=== PATIENT | male | born 1970 | race Caucasian/White ===

== ENCOUNTER 2018-07-10 13:54 | Inpatient (IN) | payer MEDICAID, OTHER ==
[~2018-07-10] VITALS: Ht 180.3 cm; Wt 100.2 kg
[2018-07-10 15:58] LABS: BASOPHILS % (AUTO) 0.9 % (0.0-2.0); EOSINOPHILS % (AUTO) 6.9 % (1.0-6.0); HEMATOCRIT 43.5 % (41-53); HEMOGLOBIN 14.6 g/dL (13.5-17.5); LYMPHOCYTES # (AUTO) 3.8 K/uL (1.0-4.8); LYMPHOCYTES % (AUTO) 41.4 % (22.0-44.0); MEAN CORPUSCULAR HEMOGLOBIN 30.4 pg (26.0-34.0); MEAN CORPUSCULAR HGB CONC 33.5 G/dL (31.0-37.0); MEAN CORPUSCULAR VOLUME 91 fL (80-100); MONOCYTES # (AUTO) 0.9 K/uL (0.1-1.0); MONOCYTES % (AUTO) 9.8 % (2.0-9.0); NEUTROPHILS # (AUTO) 3.8 K/uL (1.8-7.7); PLATELET COUNT (AUTO) 227 K/uL (150-450); RED CELL DISTRIBUTION WIDTH 13.8 % (11.5-14.5)
[2018-07-10 16:17] LABS: ANION GAP 9 mmol/L (8-16); CALCIUM, TOTAL 9.5 mg/dL (8.8-10.5); CARBON DIOXIDE 27 mmol/L (22-29); CHLORIDE 105 mmol/L (98-107); CREATININE 1.43 mg/dL (0.60-1.30); GLOMERULAR FILTR. RATE CALC 52 mL/min (>60); GLUCOSE,RANDOM 55 mg/dL (70-110); POTASSIUM 4.5 mmol/L (3.5-5.1); SODIUM SERUM 141 mmol/L (136-145); UREA NITROGEN, BLOOD 29 mg/dL (7-18)
[2018-07-10 16:20] LABS: ALANINE AMINOTRANSFERASE 75 U/L (12-78); ALBUMIN 4.2 g/dL (3.4-5.0); ALKALINE PHOSPHATASE 107 U/L (46-116); ASPARTATE AMINOTRANSFERASE 59 U/L (15-37); BILIRUBIN,TOTAL 0.5 mg/dL (0.1-1.0); TOTAL PROTEIN, SERUM 8.1 g/dL (6.4-8.2)
[2018-07-10] MEDS ORDERED: FAMO20 PO (18:36)
[2018-07-10] MEDS ORDERED: SUMA25TA9 PO (18:36)
[2018-07-10] MEDS ORDERED: ARIP10TA8 PO (18:36)
[2018-07-10] MEDS ORDERED: TRAZ-219 PO (18:36)
[2018-07-10] MEDS ORDERED: PREG50 PO (18:36)
[2018-07-10] MEDS ORDERED: MIRT15 PO (18:36)
[2018-07-10] MEDS ORDERED: PROP20TA18 PO (18:36)
[2018-07-10] MEDS ORDERED: TRAZ-220 PO (18:36)
[2018-07-10] MEDS ORDERED: ASPI-1182 PO (18:36)
[2018-07-10] MEDS ORDERED: METF500T6 PO (18:36)
[2018-07-10] MEDS ORDERED: GEMF600T5 PO (18:36)
[2018-07-10] MEDS ORDERED: MAXIOS OP (18:36)
[2018-07-10] MEDS ORDERED: BUPR1FIL SL (18:36)
[2018-07-10] MEDS ORDERED: GABA-533 PO (18:36)
[2018-07-10] MEDS ORDERED: PIOG15TA6 PO (18:36)
[2018-07-10] MEDS ORDERED: ATOR40TA28 PO (18:36)
[2018-07-10 19:30] LABS: AMPHET/METH SCREEN,URINE NEGATIVE (NEGATIVE); BARBITURATE SCREEN, URINE NEGATIVE (NEGATIVE); BENZODIAZEPINES SCREEN,URINE NEGATIVE (NEGATIVE); CANNABINOID SCREEN,URINE NEGATIVE (NEGATIVE); COCAINE SCREEN,URINE NEGATIVE (NEGATIVE); METHADONE SCREEN, URINE NEGATIVE (NEGATIVE); OPIATE SCREEN,URINE NEGATIVE (NEGATIVE)
[2018-07-10 19:32] LABS: PHENCYCLIDINE SCREEN,URINE NEGATIVE (NEGATIVE)
[2018-07-10] MEDS ORDERED: LORazepam 2 MG TABLET PO ONE (19:45)
[2018-07-10] MEDS ORDERED: DiphenhydrAMINE HCL 25 MG CAPSULE PO ONE (19:45)
[2018-07-10 19:53] LABS: GLUCOSE,POINT OF CARE 121 MG/DL (70-110)
[2018-07-10] MEDS ORDERED: ZOLPIDEM TARTRATE 10 MG TABLET PO PRN (20:00)
[2018-07-10] MEDS ORDERED: HALOPERIDOL 5 MG TABLET PO PRN (20:00)
[2018-07-10] MEDS ORDERED: LORazepam 2 MG TABLET PO PRN (20:00)
[2018-07-10] MEDS: TraZODone HCL 50 MG TABLET PO SCH (20:33)
[2018-07-10 22:05] VITALS: BP 149/95
[2018-07-10 22:23] LABS: GLUCOMETER DEV NAME(LOC) BV2S 2; GLUCOSE,POINT OF CARE 153 MG/DL (70-110)
[2018-07-10] MEDS ORDERED: PNEUMOCOCCAL VACCINE POLYVALENT 0.5 ML VIAL [PPSV23] IM ONE (22:30)
[2018-07-10] MEDS ORDERED: ONDANSETRON HCL 4 MG TABLET PO PRN (23:15)
[2018-07-10] MEDS ORDERED: NICOTINE 14 MG/24 HOUR PATCH TD PRN (23:15)
[2018-07-10] MEDS ORDERED: MAG HYDROX/AL HYDROX/SIMETH ES 30 ML SUSPENSION UDCUP PO PRN (23:15)
[2018-07-10] MEDS ORDERED: ACETAMINOPHEN 325 MG TABLET PO PRN (23:15)
[2018-07-10] MEDS ORDERED: IBUPROFEN 400 MG TABLET PO PRN (23:15)
[2018-07-10] MEDS ORDERED: CloNIDine HCL 0.1 MG TABLET PO PRN (23:15)
[2018-07-10] MEDS ORDERED: MAGNESIUM HYDROXIDE SUSPENSION 30 ML UDCUP PO PRN (23:15)
[2018-07-10] MEDS ORDERED: ALBUTEROL SULFATE HFA 90 MCG/PUFF 8 GM INHALER IH PRN (23:15)
[2018-07-10] MEDS ORDERED: GuaiFENesin/D-METHORPHAN [SUGAR-FREE] 200-20MG/10 ML SYRUP UDCUP PO PRN (23:15)
[2018-07-10] MEDS ORDERED: DOCUSATE SODIUM 100 MG CAPSULE PO PRN (23:15)
[2018-07-10] MEDS ORDERED: PETROLATUM,WHITE 71 GM JELLY TP PRN (23:15)
[2018-07-10] MEDS ORDERED: LOPERAMIDE HCL 2 MG CAPSULE PO PRN (23:15)
[2018-07-11] MEDS ORDERED: SUMAtriptan SUCCINATE 25 MG TABLET PO PRN ×2 (00:45→01:15)
[2018-07-11] MEDS: MetFORMIN HCL 500 MG TABLET PO SCH ×2 (06:52→16:27)
[2018-07-11] MEDS: GEMFIBROZIL 600 MG TABLET PO SCH ×2 (06:52→16:27)
[2018-07-11 06:56] VITALS: BP 120/79
[2018-07-11 08:36] VITALS: BP 117/70
[2018-07-11 08:42] LABS: BASOPHILS % (AUTO) 0.7 % (0.0-2.0); EOSINOPHILS % (AUTO) 7.8 % (1.0-6.0); HEMATOCRIT 42.8 % (41-53); HEMOGLOBIN 14.2 g/dL (13.5-17.5); LYMPHOCYTES % (AUTO) 40.9 % (22.0-44.0); MEAN CORPUSCULAR HEMOGLOBIN 30.5 pg (26.0-34.0); MEAN CORPUSCULAR HGB CONC 33.2 G/dL (31.0-37.0); MEAN CORPUSCULAR VOLUME 92 fL (80-100); MONOCYTES # (AUTO) 0.4 K/uL (0.1-1.0); MONOCYTES % (AUTO) 7.9 % (2.0-9.0); NEUTROPHILS # (AUTO) 2.1 K/uL (1.8-7.7); NEUTROPHILS % (AUTO) 42.7 % (40.0-70.0); PLATELET COUNT (AUTO) 176 K/uL (150-450); RED BLOOD CELL COUNT(AUTO) 4.66 MIL/uL (4.50-5.90); RED CELL DISTRIBUTION WIDTH 13.6 % (11.5-14.5)
[2018-07-11 09:00] LABS: HEMOGLOBIN A1C 7.6 % (4.5-6.2)
[2018-07-11] MEDS ORDERED: ATORVASTATIN CALCIUM 40 MG TABLET PO SCH ×2 (09:00→21:00)
[2018-07-11 09:17] LABS: ALBUMIN 3.7 g/dL (3.4-5.0); BILIRUBIN,TOTAL 0.4 mg/dL (0.1-1.0); CALCIUM, TOTAL 8.9 mg/dL (8.8-10.5); CREATININE 1.36 mg/dL (0.60-1.30); POTASSIUM 4.1 mmol/L (3.5-5.1); THYROID STIMULATING HORMONE 2.46 uIU/mL (0.36-3.74); TOTAL PROTEIN, SERUM 7.5 g/dL (6.4-8.2)
[2018-07-11] MEDS: DULoxetine HCL 60 MG CAPSULE PO SCH (09:57)
[2018-07-11] MEDS: PROPRANOLOL HCL 20 MG TABLET PO SCH (09:57)
[2018-07-11] MEDS: PREGABALIN 50 MG CAPSULE PO SCH ×3 (09:57→16:27)
[2018-07-11] MEDS: FAMOTIDINE 20 MG TABLET PO SCH ×2 (09:58→16:28)
[2018-07-11] MEDS: THIAMINE HCL 100 MG TABLET PO SCH (09:58)
[2018-07-11] MEDS: GABAPENTIN 400 MG CAPSULE PO SCH ×3 (09:58→16:28)
[2018-07-11] MEDS: PIOGLITAZONE HCL 15 MG TABLET PO SCH (09:58)
[2018-07-11] MEDS: ARIPiprazole 10 MG TABLET PO SCH (09:58)
[2018-07-11] MEDS: ASPIRIN 81 MG EC TABLET PO SCH (09:59)
[2018-07-11] MEDS ORDERED: GLUCAGON,HUMAN RECOMBINANT 1 MG VIAL IM PRN (14:15)
[2018-07-11 16:27] VITALS: BP 118/82
[2018-07-11] MEDS: TraZODone HCL 50 MG TABLET PO SCH (20:49)
[2018-07-11] MEDS ORDERED: INSULIN GLARGINE,HUM.REC.ANLOG 100 UNITS/ML SQ SCH (21:00)
[2018-07-11 21:03] LABS: GLUCOMETER DEV NAME(LOC) 3EI C; GLUCOSE,POINT OF CARE 179 MG/DL (70-110)
[2018-07-11] MEDS: INSULIN LISPRO 100 UNITS/ML SQ PRN (21:06)
[2018-07-12 00:40] LABS: GLUCOMETER DEV NAME(LOC) BV2S 2; GLUCOSE,POINT OF CARE 114 MG/DL (70-110)
[2018-07-12 05:31] LABS: GLUCOMETER DEV NAME(LOC) 3EI C; GLUCOSE,POINT OF CARE 209 MG/DL (70-110)
[2018-07-12] MEDS: GEMFIBROZIL 600 MG TABLET PO SCH (06:42)
[2018-07-12] MEDS: MetFORMIN HCL 500 MG TABLET PO SCH (06:42)
[2018-07-12] MEDS: INSULIN LISPRO 100 UNITS/ML SQ PRN ×2 (06:44→11:49)
[2018-07-12 08:30] VITALS: BP 146/78
[2018-07-12] MEDS: PIOGLITAZONE HCL 15 MG TABLET PO SCH (09:55)
[2018-07-12] MEDS: PREGABALIN 50 MG CAPSULE PO SCH ×2 (09:55→12:09)
[2018-07-12] MEDS: DULoxetine HCL 60 MG CAPSULE PO SCH (09:55)
[2018-07-12] MEDS: ARIPiprazole 10 MG TABLET PO SCH (09:55)
[2018-07-12] MEDS: PROPRANOLOL HCL 20 MG TABLET PO SCH (09:55)
[2018-07-12] MEDS: ASPIRIN 81 MG EC TABLET PO SCH (09:56)
[2018-07-12] MEDS: THIAMINE HCL 100 MG TABLET PO SCH (09:56)
[2018-07-12] MEDS: FAMOTIDINE 20 MG TABLET PO SCH (09:56)
[2018-07-12] MEDS: GABAPENTIN 400 MG CAPSULE PO SCH ×2 (09:56→12:09)
[2018-07-12] MEDS ORDERED: TRAZ-220 PO (11:01)
[2018-07-12] MEDS ORDERED: DULO60CA44 PO (11:01)
[2018-07-12] MEDS ORDERED: ARIP10TA8 PO (11:01)
[2018-07-12] MEDS ORDERED: THIA100T67 PO (11:04)
[2018-07-12] MEDS ORDERED: INSLAN SQ (11:04)
[2018-07-12 11:51] LABS: GLUCOMETER DEV NAME(LOC) 3EI C; GLUCOSE,POINT OF CARE 211 MG/DL (70-110)
== END 2018-07-12 13:40 | disposition home or self-care (01) | DRG 751 ==
LOC: EMS 13:55 → B2S 20:30 → 3EI 21:44
PROVIDERS: ADMIT Psychiatry & Neurology Psychiatry; ATTEND Psychiatry & Neurology Psychiatry
DX: F33.3 Major depressive disorder, recurrent, severe with psychotic symptoms (principal); E11.40 Type 2 diabetes mellitus with diabetic neuropathy, unspecified; R45.851 Suicidal ideations; E78.00 Pure hypercholesterolemia, unspecified; E78.5 Hyperlipidemia, unspecified; F34.1 Dysthymic disorder; F41.9 Anxiety disorder, unspecified; F60.3 Borderline personality disorder; H40.9 Unspecified glaucoma; I10 Essential (primary) hypertension; K21.9 Gastro-esophageal reflux disease without esophagitis; M54.30 Sciatica, unspecified side; G43.909 Migraine, unspecified, not intractable, without status migrainosus; M79.7 Fibromyalgia; Z96.41 Presence of insulin pump (external) (internal); Z79.4 Long term (current) use of insulin; Z79.899 Other long term (current) drug therapy; Z91.041 Radiographic dye allergy status; Z98.49 Cataract extraction status, unspecified eye
CPT/HCPCS: 82948; 83036; 84443; 99285; G0480; J1815